=== PATIENT | female | born 1960 | race Caucasian/White ===

== ENCOUNTER → 2018-02-26 | Outpatient (CLI) | payer OTHER ==
--- NOTE | 2018-02-26 13:46 | US ---
EXAMINATION TYPE: US kidneys/renal and bladder DATE OF EXAM: 02/26/2018 COMPARISON: NONE CLINICAL HISTORY: N18.9 CKD. Diabetic EXAM MEASUREMENTS: Right Kidney: 10.3 x 4.2 x 4.1 cm Left Kidney: 7.1 x 3.2 x 3.4 cm Post Void Residual Volume: bladder emptied Right Kidney: No hydronephrosis or masses seen Left Kidney: small for size, thin cortex; microcalcifications noted mid pole; hyperechoic parallel li vitaliy near mid cortex suggests calcified vessel rodriguez. Bladder: wnl Bilateral Jets seen: only small right jet was seen after 3 minute observation Normal Post Void Residual: yes Asymmetric diminished size to left kidney with increased cortical echogenicity. IMPRESSION: No hydronephrosis is evident bilaterally. Asymmetric increased chronic medical renal disease the left kidney is noted.
== END ==
LOC: RADUSWWP 12:30
PROVIDERS: ATTEND Family Medicine
DX: N18.9 Chronic kidney disease, unspecified (principal); Z88.5 Allergy status to narcotic agent
CPT/HCPCS: 76770

== ENCOUNTER → 2018-12-30 | Outpatient (CLI) | payer OTHER ==
--- NOTE | 2018-12-30 13:31 | CTL ---
EXAMINATION TYPE: CT Low Dose Lung DATE OF EXAM ORDERED: 12/30/2018 HISTORY: . Lung cancer screening CT DLP: [address] CTDI: 1.68 mGy Automated exposure control for dose reduction was used. SCREENING VISIT: COMPARISON: None TECHNIQUE: Low dose computed tomography scan was performed through the chest at 1 mm thick sections a nd reconstructed images in the coronal plane at [address] DIAGNOSTIC QUALITY: Satisfactory FINDINGS: LUNGS: There is a 3 mm left apical subpleural nodule. No consolidation or pleural effusion. No pneumothorax. Mild hyperinflation suggests COPD. PLEURAL SPACE: Very mild apical pleural thickening. No pleural calcifications. No pleural effusion or pneumothorax. HEART: There is a dense coronary artery calcification as well as dense pericardial calcification which could been the basis of previous pericarditis. Also because the patient at risk for restrictive pericardit is. No sizable pericardial fluid. Heart size at the upper limits of normal. OTHER FINDINGS: Ascending aorta measures approximately 4.1 cm compatible with mild aneurysmal dilation. Ascending tho racic aorta is of normal caliber and there is mild atherosclerotic changes Structures of the upper abdomen demonstrate no definite abnormality. Hypertrophic and degenerative change of the vertebral column. Chronic deformity of the left rib cage may be congenital fusion of the rib interspace laterally. Is atherosclerotic change of the origin of the great vessels. IMPRESSION: 1. There is a single 3 mm left apical pleural nodule. 2. Dense coronary artery calcification and atherosclerotic change. 3. Pericardial calcifications correlate for history of previous pericarditis. Pericardial calcificati on compatible with the patient was constricted pericarditis. 4. Mild aneurysmal dilation of the ascending aorta measuring 4.1 cm. 5. There appears to be dense atherosclerotic changes within the proximal left common carotid artery f or which follow-up ultrasound or CTA is recommended to exclude significant stenosis. FOLLOW UP CT CHEST RECOMMENDATION: [address] LUNG RAD: Lung-Rad 2 Benign Appearance or Behavior A Yellow level critical message alert has been initiated for Nhan Alcaraz MD via the [employer] Critical Results System on 12/30/2018 1:28 PM. This message alert has been sent to Nhan Alcaraz MD via the preferences provided by the clinician for the receipt of Radiology Critical Findings. [facility] ID [id number].
== END ==
LOC: RADCTMAIN 11:30
PROVIDERS: ATTEND Internal Medicine
DX: Z12.2 Encounter for screening for malignant neoplasm of respiratory organs (principal); I25.10 Atherosclerotic heart disease of native coronary artery without angina pectoris; I71.2 Thoracic aortic aneurysm, without rupture; I70.90 Unspecified atherosclerosis; F17.210 Nicotine dependence, cigarettes, uncomplicated

== ENCOUNTER → 2019-01-22 | Outpatient (CLI) | payer OTHER ==
--- NOTE | 2019-01-22 10:11 | BD ---
EXAMINATION TYPE: Axial Bone Density DATE OF EXAM: 01/22/2019 COMPARISON: NONE CLINICAL HISTORY: Height: 5 FT Weight: 108 FRAX RISK QUESTIONS: History of Fracture in Adulthood: YES Secondary Osteoporosis: 3. Menopause before 45: YES Current Tobacco Use: YES RISK FACTORS HISTORY OF: Surgery to Spine/Hip(right/left)/Wrist (right/left): WRIST RT When: 2012 Active: YES Postmenopausal woman: AGE 39 MEDICATIONS: Additional Medications: LISINOPRIL,NORVASC, METFORMIN, INHALER, BABY ASPIRIN, MULTI VIT Additional History: EXAM MEASUREMENTS: Bone mineral densitometry was performed using the [employer] System. Bone mineral density as measured about the Lumbar spine is: ----- L1-L4(G/cm2): 1.128 T Score Values are as follows: ----- L2: -0.1 ----- L3: 0.1 ----- L4: -0.6 ----- L1-L4: -0.4 BASELINE Bone mineral density about the R hip (g/cm2): 0.583 Bone mineral density about the L hip (g/cm2): 0.611 T Score values are as follows: -----R Neck: -3.3 -----L Neck: -3.1 -----R Total: -3.6 -----L Total: -2.8 BASELINE IMPRESSION: Osteoporosis of the bilateral hips NOTE: T-SCORE=SD OF THE YOUNG ADULT MEAN.
== END | disposition home or self-care (01) ==
LOC: RADBDWWP 09:07
PROVIDERS: ATTEND Internal Medicine
DX: Z13.820 Encounter for screening for osteoporosis (principal); M81.0 Age-related osteoporosis without current pathological fracture
CPT/HCPCS: 77080

== ENCOUNTER → 2019-02-09 | Outpatient (CLI) | payer OTHER ==
--- NOTE | 2019-02-10 17:13 | ECHOF ---
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 This was a technically difficult study with suboptimal views. The left ventricular size is normal. There is mild concentric left ventricular hypertrophy. Overa ll left ventricular systolic function is normal with, an EF between 60 - 65 %. The right ventricle is normal in size. The left atrial size is normal. Left atrium is normal size by volume. The right atrial size is normal. Lumason used Interatrial and interventricular septum intact. Aortic valve is trileaflet and is mildly thickened. There is mild aortic regurgitation. Mild mitral annular calcification present. Mild tricuspid regurgitation present. There is no evidence of pulmonary hypertension. The right v entricular systolic pressure, as measured by Doppler, is 26.64mmHg. There is no pulmonic regurgitation present. The aortic root size is normal. The inferior vena cava was not well visualized. Echo free space may represent effusion or a pericardial fat pad. CONCLUSIONS -------- 1. Sinus rhythm. 2. This was a technically difficult study with suboptimal views. 3. The left ventricular size is normal. 4. There is mild concentric left ventricular hypertrophy. 5. Overall left ventricular systolic function is normal with, an EF between 60 - 65 %. 6. The right ventricle is normal in size. 7. The left atrial size is normal. 8. Left atrium is normal size by volume. 9. The right atrial size is normal. 10. Lumason used 11. Interatrial and interventricular septum intact. 12. Aortic valve is trileaflet and is mildly thickened. 13. There is mild aortic regurgitation. 14. Mild mitral annular calcification present. 15. Mild tricuspid regurgitation present. 16. There is no evidence of pulmonary hypertension. 17. The right ventricular systolic pressure, as measured by Doppler, is 26.64mmHg. 18. There is no pulmonic regurgitation present. 19. The aortic root size is normal. 20. The inferior vena cava was not well visualized. 21. Echo free space may represent effusion or a pericardial fat pad. KITCHEN HELPER: Karen Lozano RDCS
== END | disposition home or self-care (01) ==
LOC: RADECHMAIN 13:13
PROVIDERS: ATTEND Internal Medicine
DX: I31.1 Chronic constrictive pericarditis (principal)
CPT/HCPCS: 93017; C8929; Q9950; 93306

== ENCOUNTER → 2019-04-21 | Outpatient (CLI) | payer OTHER ==
--- NOTE | 2019-04-21 12:36 | US ---
EXAMINATION TYPE: US carotid duplex BILAT DATE OF EXAM: 04/21/2019 COMPARISON: NONE CLINICAL HISTORY: I65.29 STENOSIS OF CAROTID. Stenosis EXAM MEASUREMENTS: RIGHT: Peak Systolic Velocity (PSV) cm/sec ----- Right CCA: 81.7 ----- Right ICA: 120.6 ----- Right ECA: 112.7 ICA/CCA ratio: 1.5 RIGHT: End Diastole cm/sec ----- Right CCA: 18.9 ----- Right ICA: 30.1 ----- Right ECA: 7.0 LEFT: Peak Systolic Velocity (PSV) cm/sec ----- Left CCA: Near complete occlusion ----- Left ICA: Near complete occlusion ----- Left ECA: 25.1 ICA/CCA ratio: Not applicable LEFT: End Diastole cm/sec ----- Left CCA: Near complete occlusion ----- Left ICA: Near complete occlusion ----- Left ECA: 3.6 VERTEBRALS (direction of flow): Right Vertebral: Antegrade Left Vertebral: Retrograde Rhythm: Normal Left CCA and ICA near completely occluded with minimal trickle of flow, left ECA reversed flow. IMPRESSION: 1. Near complete occlusion of the visualized left common carotid artery and internal carotid artery w ith only a very diminutive trickle flow seen and reversal of the left external carotid artery flow. C ritical message was sent as the ordering physician's office was closed for lunch. 2. No hemodynamically significant stenosis within the right carotid arterial system as visualized. Criteria for Assigning % of Stenosis / Diameter reduction (Estimation based on the indirect measurements of the internal carotid artery velocities (ICA PSV). 1. Normal (no stenosis)=ICA PSV < 125 cm/s: ratio < 2.0: ICA EDV<40 cm/s. 2. Less than 50% stenosis=ICA PSV < 125 cm/s: ratio < 2.0: ICA EDV<40 cm/s. 3. 50 to 69% stenosis=ICA PSV of 125 to 230 cm/s: ration 2.0 ? 4.0: ICA EDV 40-100 cm/s. 4. Greater than 70% stenosis to near occlusion= ICA PSV > 230 cm/s: ratio > 4.0: ICA EDV > 100 cm/s. 5. Near occlusion= ICA PSV velocities may be low or undetectable: variable ratio and ICA EDV. 6. Total occlusion=unable to detect flow. A Red level critical message alert has been initiated for Nhan Alcaraz MD via the [employer] Critical Results System on 04/21/2019 12:34 PM. This message alert has been sent to Nhan Alcaraz MD via the preferences provided by the clinician for the receipt of Radiology Critical Findings. Message ID [id number].
== END | disposition home or self-care (01) ==
LOC: RADUSWWP 11:37
PROVIDERS: ATTEND Internal Medicine
DX: I65.22 Occlusion and stenosis of left carotid artery (principal)
CPT/HCPCS: 93880; 93923

== ENCOUNTER → 2020-04-28 | Outpatient (CLI) | payer OTHER ==
[~2020-04-28] MED LIST: DENOSUMAB 60 MG/ML 1 ML SYRINGE SQ NR
== END | disposition home or self-care (01) ==
LOC: PROCWHC3 11:03
PROVIDERS: ATTEND Internal Medicine
DX: M81.0 Age-related osteoporosis without current pathological fracture (principal)

== ENCOUNTER → 2021-03-08 | Outpatient (CLI) | payer OTHER ==
--- NOTE | 2021-03-08 11:18 | MR ---
EXAMINATION TYPE: MR lumbar spine wo con DATE OF EXAM: 03/08/2021 COMPARISON: None HISTORY: Low back pain down both legs for 20 years TECHNIQUE: Multiplanar, multisequence images of the lumbar spine were acquired. L1-L2: Minimal posterior disc bulge causes slight anterior mass effect on the sac. No significant for aminal encroachment. L2-L3: Posterior disc bulge causes mild anterior mass effect on the thecal sac. There is facet arthro april with hypertrophy ligamentum flavum causing some posterior lateral mass effect on the thecal sac . L3-L4: Posterior disc bulge causes mild anterior mass effect on the thecal sac. There is some facet a rthropathy with hypertrophy ligamentum flavum causing posterior lateral mass effect on the thecal sac . Differential extension of disc bulge causes some mild foraminal encroachment inferior margin more t owards the left. L4-L5: Facet arthropathy with hypertrophic change and ligamentum flavum causes lateral mass effect on the thecal sac. Circumferential posterior disc bulge causes mild anterior mass effect thecal sac, ex tends laterally to cause some mild encroachment on the inferior aspect of the foramina. L5-S1: Normal disc appearance without desiccation. No herniation, protrusion or disc bulging. No ca nal stenosis is present. Foramina are patent bilaterally. There is some facet arthropathy change. Lumbar segments are intact. No paraspinal masses are identified. Conus medullaris has a normal appe arance. There is multilevel spondylosis. There is a spinal curvature present. Endplate discogenic mar row signal changes are present. Loss of disc height present greatest at L1-2, L2-3 greater than L3-4, L4-5. No significant spinal stenosis. Lumbar vertebral bodies show preserved height. IMPRESSION: Degenerative disc disease, facet arthropathy, mild spinal curvature
== END | disposition home or self-care (01) ==
LOC: RADMRIMAIN 08:43
PROVIDERS: ATTEND Internal Medicine
DX: M51.36 Other intervertebral disc degeneration, lumbar region (principal); M47.816 Spondylosis without myelopathy or radiculopathy, lumbar region; M43.8X6 Other specified deforming dorsopathies, lumbar region
CPT/HCPCS: 72148

== ENCOUNTER → 2021-12-04 | Outpatient (CLI) | payer OTHER ==
[2021-12-04 10:02] VITALS: BP 154/72; PULSE 82; RESP 16; TEMP 98
== END ==
LOC: PROCWHC3 09:29
PROVIDERS: ATTEND Internal Medicine Geriatric Medicine
DX: M81.0 Age-related osteoporosis without current pathological fracture (principal); Z91.013 Allergy to seafood
CPT/HCPCS: 96372; J0897

== ENCOUNTER → 2022-08-16 | Outpatient (CLI) | payer OTHER ==
--- NOTE | 2022-08-16 10:05 | CTL ---
EXAMINATION TYPE: CT Low Dose Lung DATE OF EXAM ORDERED: 08/16/2022 HISTORY: 62-year-old female Z87.891 personal hx tobacco use. Current smoker with 33 pack-year history . Lung cancer screening CT DLP: 47.[address] CTDI: 1.4 mGy Automated exposure control for dose reduction was used. SCREENING VISIT: 3 year follow-up after last exam COMPARISON: 12/30/2018 TECHNIQUE: Low dose computed tomography scan was performed through the chest with coronal and sagitta l reconstructions. CT DIAGNOSTIC QUALITY: Satisfactory FINDINGS: Heart normal size without pericardial effusion. Scattered pericardial calcifications are similar comp ared to 2019. Findings suggest sequela of prior pericarditis. Some distal LAD coronary artery calcifi cations are noted. There is an aneurysmal ascending aorta up to 4.3 cm versus 4.2 cm, previously. Mild atherosclerotic a rch calcifications. Suggestion of mild to moderate arthritic narrowing at the origin of the left subc lavian artery. Possible severe focal stenosis of the left common carotid artery for a span of 2 cm lo cated 3 cm above its takeoff. Refer to axial image 7. No thoracic lymphadenopathy by CT size criteria. New 9 mm subpleural nodule lateral left upper lobe, axial image 80. The tiny 3 mm subpleural left apical nodule, axial 35 is unchanged. Normal variant azygous fissure. Mild to moderate diffuse bronchial wall thickening. No consolidation or pleural effusion. Tiny hiatal hernia. Probably ingested material within the stomach. Bones: Osteopenia. IMPRESSION: 1. LungRADS Category 4B (very suspicious, >15% chance of malignancy). New 9 mm left upper lobe subpl eural pulmonary nodule. Recommend further PET CT evaluation. 2. Bronchial wall thickening suggests bronchitis or asthma. Recommend smoking cessation. 3. Similar scattered pericardial calcifications suggesting sequela of prior pericarditis. 4. Mild aneurysm of the ascending aorta at 4.3 cm versus 4.2 cm, previously. 5. Redemonstrated dense atherosclerotic calcifications in the left common carotid artery, possible oc clusion here. CT LUNG RAD AND CT CHEST RECOMMENDATION: Lung-Rad 4B or 4X Very Suspicious: Follow-up Chest CT with o r without contrast or PET/CT and/or tissue sampling. PET/CT may be used when there is a > 8 mm solid component. S Modifier (other clinically significant findings): S, recommend vascular surgery referral for survei llance of the ascending aortic aneurysm and further evaluation of suspected left common carotid arter y occlusion.
== END | disposition home or self-care (01) ==
LOC: RADCTMAIN 08:42
PROVIDERS: ATTEND Internal Medicine Geriatric Medicine
DX: Z12.2 Encounter for screening for malignant neoplasm of respiratory organs (principal); F17.210 Nicotine dependence, cigarettes, uncomplicated; J98.09 Other diseases of bronchus, not elsewhere classified; I71.11 Aneurysm of the ascending aorta, ruptured; I25.10 Atherosclerotic heart disease of native coronary artery without angina pectoris; R91.1 Solitary pulmonary nodule
CPT/HCPCS: 71271

== ENCOUNTER → 2022-08-22 | Outpatient (CLI) | payer OTHER ==
--- NOTE | 2022-08-22 13:16 | XR ---
EXAMINATION TYPE: XR lumbar spine 2 or 3V DATE OF EXAM: 08/22/2022 CLINICAL HISTORY: pain TECHNIQUE: Three views of the lumbar spine are submitted. COMPARISON: None. FINDINGS: There are 5 lumbar type vertebral bodies identified. Curvature convex to the right. The lumbar spine shows satisfactory alignment without evidence of acute fracture or dislocation. Vertebral body heigh ts are within normal limits. Moderate multilevel degenerative disc space narrowing and spondylosis. The overlying soft tissue appears unremarkable. IMPRESSION: No acute fracture or dislocation is seen in the lumbar spine. ICD 10 NO FRACTURE, INITIAL EVALUATION
--- NOTE | 2022-08-22 13:17 | XR ---
EXAMINATION TYPE: XR thoracic spine 2V DATE OF EXAM: 08/22/2022 COMPARISON: NONE HISTORY: Back pain TECHNIQUE: 3 views submitted FINDINGS: Alignment is anatomic. There is no compression deformities. Vertebral body height and disc interspa jason are maintained. Calcification along the right cardiac border could be related to the aorta or pe ricardium. Diffuse osteopenia with multilevel mild degenerative disc disease. IMPRESSION: 1. Diffuse osteopenia with multilevel mild degenerative disc disease. 2. Calcification along the right heart border stable dating back to a previous CT scan of 08/16/2022 m ost likely on the basis of pericardial calcification. This can be associated with pericarditis.
== END | disposition home or self-care (01) ==
LOC: RADXRMAIN 12:28
PROVIDERS: ATTEND Nurse Practitioner Family
DX: M51.34 Other intervertebral disc degeneration, thoracic region (principal); I31.9 Disease of pericardium, unspecified; M85.88 Other specified disorders of bone density and structure, other site; M54.50 Low back pain, unspecified; R93.1 Abnormal findings on diagnostic imaging of heart and coronary circulation
CPT/HCPCS: 72070; 72100

== ENCOUNTER → 2023-04-23 | Outpatient (CLI) | payer OTHER ==
[2023-04-23 15:46] LABS: African American GFR (CKD) 64 (>60 ml/min/1.73 sqM); Blood Urea Nitrogen 21 mg/dL (7-17); Non-African American GFR(CKD) 56 (>60 ml/min/1.73 sqM)
--- NOTE | 2023-04-24 08:42 | CT ---
EXAMINATION TYPE: CT chest w con DATE OF EXAM: 04/23/2023 COMPARISON: PET CT 11/22/[address] 08/16/2022 HISTORY: SOLITARY PULMONARY NODULE CT DLP: 147.5 mGycm Automated exposure control for dose reduction was used. CONTRAST: CT scan of the chest is performed with IV Contrast, patient injected with 80ML mL of Isovue 300. FINDINGS: LUNGS: There is enlargement of the peripheral left upper lobe pulmonary nodule measuring 1.1 cm curre ntly and on prior CT of the chest measuring 8.[address] recommended. No additional nodules identified at this time. No evidence for infiltrate or pleural effusion. MEDIASTINUM: There are no greater than 1 cm hilar or mediastinal lymph nodes. No pericardial effusi on is seen. Thoracic aorta is of normal caliber. The heart is mildly enlarged. 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 UPPER ABDOMEN: Partially imaged atrophic left kidney. OTHER: No additional significant abnormality is seen. IMPRESSION: 1. there is mild interval enlargement of left upper lobe pulmonary nodule. Repeat PET/CT is recommend ed.
== END | disposition home or self-care (01) ==
LOC: RADCTMAIN 14:30
PROVIDERS: ATTEND Internal Medicine Geriatric Medicine
DX: R91.1 Solitary pulmonary nodule (principal)
CPT/HCPCS: 82565; 84520; 71260; 36415; Q9967

== ENCOUNTER → 2023-05-03 | Outpatient (CLI) | payer OTHER ==
--- NOTE | 2023-05-03 16:51 | PE ---
EXAMINATION TYPE: PET CT fusion skull to thigh DATE OF EXAM: 05/03/2023 CLINICAL INDICATION:Female, 63 years old with history of R91.1; TECHNIQUE: Following the intravenous administration of 9.57 mCi of F-18 FDG, whole body images are performed from the skull base to the midthigh. Images are reviewed on the computer in the coronal, a xial, and sagittal planes. Reconstructed rotating images are created on independent workstation and reviewed on the computer. A non-contrast CT is performed in conjunction with the PET scan. Glucose level 91 mg/dL CT DLP: 305 mGycm, Automated exposure control for dose reduction was used. COMPARISON: CT 04/23/2023, PET/CT 11/22/2022, FINDINGS: Mediastinal SUV mean is 1.2. Hepatic parenchyma SUV mean is 1.6. SKULL BASE AND NECK: No suspicious radiotracer activity. CHEST, MEDIASTINUM, AND HILAR REGION: Left upper lung pulmonary nodule measuring up to measures minimally larger at 11 There are nodular like 1 1 versus 0.9 cm centrally mm, previously 10 mm Max SUV 1.1, previously 0.9. ABDOMEN AND PELVIS: No suspicious radiotracer activity. Scattered radiotracer throughout the bowel in cluding few foci in the rectum short segment of sigmoid colon with circumferential FDG activity. Find ings likely physiologic. OSSEOUS STRUCTURES: No suspicious radiotracer activity. OTHER CT: Similar right posterior neck palpable sebaceous cysts. Atherosclerosis of the arterial vasc ulature including the carotid bifurcations and the coronary arteries. There is pericardium calcificat ions. Atrophic left kidney. Right kidney is within normal limits for size. Mild ascending thoracic ao rta dilation up to 4.2 cm. IMPRESSION: Left upper lung nodule remains below background levels for FDG uptake. Continued surveillance with CT is recommended. It may be fractionally larger on today's exam from 11/22/2022. CT in 6-12 month follo w-up recommended.
== END | disposition home or self-care (01) ==
LOC: RADPETMAIN 11:52
PROVIDERS: ATTEND Internal Medicine Geriatric Medicine
DX: R91.1 Solitary pulmonary nodule (principal)
CPT/HCPCS: 78815; A9552

== ENCOUNTER → 2024-02-23 | Outpatient (CLI) | payer OTHER ==
[2024-02-23 09:18] LABS: African American GFR (CKD) >90 (>60 ml/min/1.73 sqM); Blood Urea Nitrogen 13 mg/dL (7-17); Non-African American GFR(CKD) >90 (>60 ml/min/1.73 sqM)
--- NOTE | 2024-02-23 11:40 | CT ---
EXAMINATION TYPE: CT chest w con CT DLP: 0923 mGycm, Automated exposure control for dose reduction was used. DATE OF EXAM: 02/23/2024 9:36 AM COMPARISON: PET CT 05/03/2023, 11/22/2022, CT chest 04/23/2023, CT low-dose lung cancer screening 09-05. CLINICAL INDICATION:Female, 63 years old with history of R91.1 SOLITARY PULMONARY NODULE; PHH, pulmo nary nodule TECHNIQUE: Multiple axial images were obtained through the chest following the administration of 100 cc of Isovue 300. . Coronal and sagittal reformats reviewed. FINDINGS: LUNGS/ PLEURA: No pleural effusion, pneumothorax, focal consolidation. Incidental azygous fissure. In crease in size of peripheral left upper lobe 1.5 x 1.1 cm pulmonary nodule, previously measured 1.2 x 0.8 cm (series 4, image 17). No new pulmonary nodules. AIRWAY: Patent and unremarkable.. HEART: Size within normal limits. Pericardial calcification is again noted.. MEDIASTINUM: No gross evidence of adenopathy. VASCULATURE: Slight aneurysmal dilatation of the ascending thoracic aorta measures up to 4.1 cm. This is stable from prior exams. Atherosclerotic sclerotic calcification of the aorta and its branches. T here is again atherosclerosis with suspected chronic occlusion of the left common carotid artery just after its origin. MUSCULOSKELETAL: No acute osseous abnormalities. Remote bilateral rib fractures. No aggressive osseou s abnormalities. SOFT TISSUES/LYMPH NODES: Unremarkable. LOWER NECK: No significant findings. UPPER ABDOMEN: Atrophy of the left kidney redemonstrated. IMPRESSION: 1. Slight increase in size of left upper lobe pulmonary nodule from most recent PET CT 11/22/2022. Thi s raises concern for pulmonary neoplasm such as adenocarcinoma despite lack of FDG uptake on prior PE T/CT. Consider tissue sampling. 2. No lymphadenopathy. 3. Redemonstration of suspected chronic occlusion versus high-grade stenosis of the proximal left com mon carotid artery demonstrated on prior carotid ultrasound in 2019
== END | disposition home or self-care (01) ==
LOC: RADCTMAIN 08:32
PROVIDERS: ATTEND Internal Medicine Critical Care Medicine
DX: R91.1 Solitary pulmonary nodule (principal)
CPT/HCPCS: 82565; 84520; 71260; 36415; Q9967

== ENCOUNTER → 2024-06-15 | Outpatient (CLI) | payer MEDICARE, OTHER ==
[2024-06-15 15:11] LABS: Basophils # (A) 0.05 X 10*3/uL (0.00-0.10); Basophils % (A) 0.5 %; Eosinophils # (A) 0.43 X 10*3/uL (0.04-0.35); Eosinophils % (A) 4.1 %; HCT 44.8 % (37.2-46.3); HGB 13.5 g/dL (12.0-15.0); Lymphocytes % (A) 24.8 %; MCH 26.7 pg (27.0-32.0); MCHC 30.1 g/dL (32.0-37.0); MCV 88.7 FL (80.0-97.0); Mean Platelet Volume 11.8 FL (9.5-12.2); Monocytes # (A) 0.99 X 10*3/uL (0.20-1.00); Monocytes % (A) 9.4 %; NRBC Per 100 WBC 0 X 10*3/uL (0.00-0.01); Neutrophils # (A) 6.35 X 10*3/uL (1.80-7.70); Neutrophils % (A) 60.6 %; Platelet Count 365 X 10*3/uL (140-440); RBC 5.05 X 10*6/uL (4.10-5.20); WBC 10.48 X 10*3/uL (4.50-10.00)
[2024-06-15 15:30] LABS: ALT 10 U/L (8-44); AST 15 U/L (13-35); Albumin 4.5 g/dL (3.8-4.9); Alkaline Phosphatase 78 U/L (41-126); BUN/Creat Ratio 11.62 Ratio (12.00-20.00); Blood Urea Nitrogen 9.3 mg/dL (9.0-27.0); Calcium 10.4 mg/dL (8.7-10.3); Carbon Dioxide 25.4 mmol/L (21.6-31.8); Chloride 96 mmol/L (96-109); Globulin 2.5 g/dL (1.6-3.3); Glucose 168 mg/dL (70-110); Potassium 4.3 mmol/L (3.5-5.5); Sodium 137 mmol/L (135-145); Total Bilirubin 0.2 mg/dL (0.3-1.2)
[2024-06-15 15:37] LABS: Prealbumin 18.7 mg/dL (18.0-42.0)
== END | disposition home or self-care (01) ==
LOC: LABWHC1 10:24
PROVIDERS: ATTEND Internal Medicine Infectious Disease
DX: E11.65 Type 2 diabetes mellitus with hyperglycemia (principal); L72.0 Epidermal cyst
CPT/HCPCS: 36415; 80053; 83036; 84134; 85025

== ENCOUNTER → 2024-12-06 | Outpatient (CLI) | payer MEDICARE, OTHER ==
[2024-12-06 13:04] LABS: African American GFR (CKD) 89 (>60 ml/min/1.73 sqM); Blood Urea Nitrogen 17 mg/dL (7-17); Non-African American GFR(CKD) 77 (>60 ml/min/1.73 sqM)
--- NOTE | 2024-12-06 15:15 | CT ---
EXAMINATION TYPE: CT angio neck CT DLP: 244 mGycm, Automated exposure control for dose reduction was used. DATE OF EXAM: 12/06/2024 2:10 PM COMPARISON: CT chest 02/23/2024, carotid ultrasound 04/21/2019. CLINICAL INDICATION:Female, 64 years old with history of I65.29 OCCLUSION AND STENOSIS; PHH, Occlusio n and stenosis TECHNIQUE: Axially acquired helical CT angiogram of the neck was obtained with contrast utilizing 75 cc of Isovue-370 administered intravenously. Axial images are supplemented with 3D reconstructions wh ich were post-processed at an independent workstation. NASCET criteria used. MIP imaging performed on a separate workstation and submitted for review. FINDINGS: CTA HEAD: No evidence of acute intracranial hemorrhage, mass effect, or midline shift. The ventricles, sulci, a nd cisterns are unremarkable. The visualized portions of the internal carotid arteries, middle cerebral arteries, anterior cerebral arteries, and posterior cerebral arteries are patent. The basilar and vertebral arteries are patent. CTA NECK: Right Carotid System: The common carotid artery and external carotid artery are patent. Moderate to high-grade stenosis of the origin of the external carotid artery secondary to calcified plaque. High-grade stenosis with gely roximately 90% stenosis at the origin of the right internal carotid artery secondary to calcified aleah que. The remaining portions of the internal carotid artery demonstrate normal size without significan t narrowing. Left Carotid System: There is occlusion at the origin of the left common carotid artery secondary to noncalcified plaque. Scattered regions of moderate amount of calcified plaque within the left common carotid artery and th e carotid bifurcation. No visualized contrast demonstrated throughout the left common carotid artery. Vertebral arteries are patent with mild stenosis at the origin of the left vertebral artery secondary to calcified plaque. The left vertebral artery is dominant. Hypoplastic V4 segment of the right vert ebral artery. There is a three-vessel aortic arch. The origins of the remaining great vessels are patent. Mild bettina nosis at the proximal right subclavian artery secondary to calcific plaque origin of the right verteb ral artery. Redemonstration of aneurysmal dilatation of the thoracic aorta measuring up to 4.1 cm. Mild mucosal thickening of the left maxillary sinus. Incidental azygous fissure. Redemonstration of l eft upper lobe pulmonary nodule measuring up to 1.6 cm. Mild multilevel degenerative disc disease mos t pronounced in the lower cervical spine. IMPRESSION: 1. Complete occlusion of the left common carotid artery beginning at its origin. 2. High-grade stenosis with approximately 90% stenosis at the origin of the right internal carotid a rtery secondary to calcified plaque. Vascular surgery consultation is recommended. 3. Moderate stenosis at the origin of the right external carotid artery. 4. Redemonstration of aneurysmal dilatation of the thoracic aorta measuring up to 4.1 cm. 5. Redemonstration of left upper lobe pulmonary nodule. Still raises concern for possible low metabo lic malignancy. Consider tissue sampling. [facility], , 12/06/2024 3:12 PM
== END | disposition home or self-care (01) ==
LOC: RADCTMAIN 12:09
PROVIDERS: ATTEND Surgery
DX: I65.23 Occlusion and stenosis of bilateral carotid arteries (principal); R91.1 Solitary pulmonary nodule; I71.20 Thoracic aortic aneurysm, without rupture, unspecified
CPT/HCPCS: 82565; 84520; 70498; 36415; Q9967

== ENCOUNTER → 2024-12-29 | Outpatient (CLI) | payer MEDICARE, OTHER ==
[2024-12-29 10:56] LABS: African American GFR (CKD) >90 (>60 ml/min/1.73 sqM); Blood Urea Nitrogen 12 mg/dL (7-17); Non-African American GFR(CKD) >90 (>60 ml/min/1.73 sqM)
--- NOTE | 2024-12-29 12:37 | CT ---
EXAMINATION TYPE: CT chest w con CT DLP: 375 mGycm, Automated exposure control for dose reduction was used. DATE OF EXAM: 12/29/2024 12:27 PM COMPARISON: CT chest 02/23/2024, 02/23/2024, CT low-dose lung 08/16/2022, 12/30/2018, PET CT 05/03/2023, CLINICAL INDICATION:Female, 64 years old with history of R91.1 SOLITARY PULMONARY NODULE; PHH, Solita ry Pulmonary Nodule TECHNIQUE: Multiple axial images were obtained through the chest following the administration of 100 cc of Isovue 300. . Coronal and sagittal reformats reviewed. FINDINGS: LUNGS/ PLEURA: No pleural effusion, pneumothorax, focal consolidation. Incidental azygous fissure. In crease in size of peripheral left upper lobe 1.5 x 1.3 cm pulmonary nodule, previously measured 1.5 x 1.1 cm (series 4, image 17). This demonstrates a more rounded solid appearance. No new pulmonary nod ules. AIRWAY: Patent and unremarkable. HEART: Size within normal limits. No pericardial effusion. Pericardial calcification is again noted. Mild coronary arterial calcifications. MEDIASTINUM: No evidence of adenopathy. VASCULATURE: Slight aneurysmal dilatation of the ascending thoracic aorta measures up to 4.0 cm. This is stable from prior exams. Atherosclerotic sclerotic calcification of the aorta and its branches. 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 MUSCULOSKELETAL: No acute osseous abnormalities. Remote bilateral rib fractures. No aggressive osseou s abnormalities. Right shoulder arthropathy. SOFT TISSUES/LYMPH NODES: Unremarkable. LOWER NECK: No significant findings. UPPER ABDOMEN: Atrophy of the left kidney redemonstrated. IMPRESSION: 1. Continued slight increase in size of left upper lobe pulmonary nodule from most recent CT. This de monstrates a more rounded solid appearance. This again raises concern for pulmonary neoplasm such as adenocarcinoma despite lack of FDG uptake on prior PET/CT. Recommend tissue sampling versus follow-up PET/CT. 2. No lymphadenopathy. 3. 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 [facility], , 12/29/2024 12:35 PM
== END | disposition home or self-care (01) ==
LOC: RADCTMAIN 10:11
PROVIDERS: ATTEND Internal Medicine Critical Care Medicine
DX: R91.1 Solitary pulmonary nodule (principal); I65.22 Occlusion and stenosis of left carotid artery
CPT/HCPCS: 82565; 84520; 71260; 36415; Q9967